=== PATIENT | female | born 1970 | race Caucasian/White ===

== ENCOUNTER 2021-01-25 06:11 | Observation (INO) | payer OTHER ==
[2021-01-24 10:43] LABS: Hemoglobin 13.8 gm/dl (10.1-14.3); Mean Corpuscular HGB Conc 35 % (30-34); Mean Corpuscular Volume 90 fl (79-97); Platelet Count 250 K/mm3 (140-440); Red Blood Count 4.45 M/mm3 (3.65-5.03); Red Cell Distribution Width 13.2 % (13.2-15.2)
[2021-01-24 11:41] LABS: Blood Urea Nitrogen 15 mg/dL (7-17); Calcium 9.4 mg/dL (8.4-10.2); Hemolysis Index 17
[2021-01-24 12:02] LABS: BUN/Creatinine Ratio 30
[~2021-01-25 06:11] MED LIST: ACETAMINOPHEN 500 MG TAB PO SCH; CELECOXIB 200 MG CAP PO NR; GABAPENTIN 300 MG CAP PO NR; LACTATED RINGERS 1,000 ML IV SCH; MIDAZOLAM 2 MG/2 ML INJ IV NR; SCOPOLAMINE TRANSDERMAL PATCH 72 HR TD NR
[2021-01-25] MEDS ORDERED: BACTERIOSTATIC SODIUM CHLORIDE 0.9% 30 ML VIAL INFILTRATI ONE (06:28)
[2021-01-25] MEDS ORDERED: ceFAZolin/STERILE WATER 2 GM/20 ML SYRINGE IV NR (07:00)
[2021-01-25] MEDS ORDERED: propofoL 200 MG/20 ML VIAL IV ONE (07:15)
[2021-01-25] MEDS ORDERED: ROCURONIUM 50 MG/5 ML INJ IV ONE (07:15)
[2021-01-25] MEDS ORDERED: ONDANSETRON 4 MG/2 ML INJ ONE (07:15)
[2021-01-25] MEDS ORDERED: LIDOCAINE MPF (2%) 20 MG/1 ML VIAL 5 ML ONE (07:15)
[2021-01-25] MEDS ORDERED: HYDROmorphone 1 MG/1 ML INJ ONE (07:16)
[2021-01-25] MEDS ORDERED: fentaNYL 100 MCG/2 ML INJ ONE ×2 (07:16→10:29)
--- NOTE | 2021-01-25 07:19 | Anesthesia Day of Surgery ---
Anesthesia Day of Surgery - Day of Surgery Patient Examined: Yes Patient H&P Reviewed: Yes Patient is NPO: Yes Beta Blockers: No Cardiac Clearance: No Pulmonary Clearance: No Osvaldo's Test: N/A
[2021-01-25] MEDS ORDERED: LIDOCAINE (1%) 10 MG/1 ML VIAL 20 ML MDV ONE (07:21)
[2021-01-25] MEDS ORDERED: BUPIVACAINE/PF (0.5%) 5 MG/1 ML 30 ML VIAL INFILTRATI ONE (07:21)
--- NOTE | 2021-01-25 07:21 | Anesthesia Consultation ---
Anesthesia Consult and Med Hx Date of service: 01/25/21 - Airway Anesthetic Teeth Evaluation: Good ROM Head & Neck: Adequate Mental/Hyoid Distance: Adequate Mallampati Class: Class III Intubation Access Assessment: Possibly Difficult - Pulmonary Exam CTA: Yes - Cardiac Exam Cardiac Exam: RRR - Pre-Operative Health Status ASA Pre-Surgery Classification: ASA3 Proposed Anesthetic Plan: General Nerve Block: TAP block - Pulmonary Hx Smoking: No Hx Sleep Apnea: No (AURA PRE SCREEN LOW RISK) - Cardiovascular System Hx Hypertension: Yes (X 5 YRS) Hx Heart Attack/AMI: No Hx Angina: No - Central Nervous System Hx Seizures: No Hx Psychiatric Problems: No - Gastrointestinal Hx Gastroesophageal Reflux Disease: No - Endocrine Hx Renal Disease: No Hx Liver Disease: No Hx Insulin Dependent Diabetes: No Hx Non-Insulin Dependent Diabetes: Yes (recently taken off her medication) - Hematic Hx Anemia: No - Other Systems Hx Cancer: No Hx Obesity: Yes
[2021-01-25] MEDS ORDERED: dexAMETHasone 4 MG/ML VIAL ONE (07:29)
[2021-01-25] MEDS ORDERED: cloNIDine/PF 1,000 MCG/10 ML VIAL EP ONE (07:29)
[2021-01-25] MEDS ORDERED: BUPIVACAINE/PF (0.25%) 2.5 MG/ML 30 ML VIAL INFILTRATI ONE (07:29)
[2021-01-25] MEDS ORDERED: ONDANSETRON 4 MG/2 ML INJ IV PRN ×3 (07:33→11:05)
[2021-01-25] MEDS ORDERED: HYDROmorphone 1 MG/1 ML INJ IV PRN (07:33)
[2021-01-25] MEDS ORDERED: WATER FOR IRRIG STERILE 1,500 ML BOTTLE IR ONE (08:32)
[2021-01-25] MEDS ORDERED: SODIUM CHLORIDE 0.9% IRR 1,500 ML BOTTLE IR ONE (09:50)
[2021-01-25] MEDS ORDERED: KETOROLAC 30 MG/1 ML INJ ONE (09:57)
[2021-01-25] MEDS ORDERED: NEOSTIGMINE 10MG/10 ML INJ MDV ONE (09:57)
[2021-01-25] MEDS ORDERED: PHENYLEPHRINE/NS 1,000 MCG/10 ML SYRINGE (OR USE) IV ONE (09:57)
[2021-01-25] MEDS ORDERED: GLYCOPYRROLATE 0.4 MG/2 ML INJ ONE (09:57)
--- NOTE | 2021-01-25 11:02 | Post Operative Note ---
Pre-op diagnosis: incisional hernia Post-op diagnosis: same Findings: 9 x7cm lower midline incisional hernia containing omentum repaired with 13.8cm x 17.[address] composite mesh Procedure: robotic assisted lysis of adhesions, open repair of incisional hernia with mesh Anesthesia: GETA, other (TAP block) Surgeon: SEAMUS GAINES Kiln Operator: MARIO ZUÑIGA Estimated blood loss: minimal Pathology: list (hernia sac) Specimen disposition: to lab Condition: stable Disposition: PACU
[2021-01-25] MEDS ORDERED: oxyCODONE /ACETAMINOPHEN 5-325MG TAB PO PRN (11:04)
--- NOTE | 2021-01-25 11:04 | Event Note ---
Date: 01/25/21 50-year-old female with a history of hysterectomy who presented for elective incisional hernia repair. Patient was found to have a larger than expected hernia defect which was not felt to be amenable to repair in a minimally invasive fashion. Therefore patient underwent open incisional hernia repair with mesh. Due to the more extensive nature of the surgery, she will be admitted for observation, pain control, case management consult to set up home health care. Daughter updated
[2021-01-25] MEDS ORDERED: MORPHINE 2 MG/1 ML INJ IV PRN (11:08)
[2021-01-25] MEDS ORDERED: DOCUSATE SODIUM 100 MG CAP PO PRN (11:30)
[2021-01-25] MEDS ORDERED: ACETAMINOPHEN 325 MG TAB PO PRN (11:30)
[2021-01-25] MEDS ORDERED: IBUPROFEN 600 MG TAB PO SCH (12:00)
[2021-01-25] MEDS: KETOROLAC 30 MG/1 ML INJ IV SCH ×2 (12:03→21:12)
--- NOTE | 2021-01-25 13:32 | Post Anesthesia Evaluation ---
- Post Anesthesia Evaluation Patient Participated: Yes Airway Patent: Yes Stable Respiratory Function: Yes Nausea/Vomiting: No Temp > 96.8F: Yes Pain Manageable: Yes Adequeate Hydration: Yes Anesthesia Complications: No
[2021-01-25] MEDS: GABAPENTIN 300 MG CAP PO SCH (17:12)
[2021-01-25] MEDS: HEPARIN 5,000 UNIT/1 ML VIAL SUB-Q SCH (17:12)
--- NOTE | 2021-01-25 19:01 | Operative Report ---
Operative Report Operative Report: Date: 01/25/21 Pre-op diagnosis: incisional hernia Post-op diagnosis: same Findings: 9 x7cm lower midline incisional hernia containing omentum repaired with 13.8cm x 17.[address] composite mesh Procedure: robotic assisted lysis of adhesions, open repair of incisional hernia with mesh Anesthesia: GETA, other (TAP block) Surgeon: SEAMUS GAINES Warehouse Operations Manager: MARIO ZUÑIGA Estimated blood loss: minimal Pathology: list (hernia sac) Specimen disposition: to lab Condition: stable Disposition: PACU HPI and indication: 50 yo F with hx of open hysterectomy who was seen in the surgery clinic for evaluation of incisional hernia. Patient was having discomfort in the area and it was recommended that the hernia be repaired. On examination, the patient had a reducible hernia of the upper portion of her lower midline incision measuring approximately 3.5cm. All risks, benefits, alternatives to surgery were discussed with the patient and her daughter. All questions answered and consent obtained for robotic assisted incisional hernia repair with mesh, possible open. Procedure in detail: Patient was identified in the preoperative area and taken back to the operating room, placed on the operating room table in supine position. After anesthesia was induced, both arms were tucked and all bony prominences padded appropriately. A jensen catheter was steriley placed by the circulating nurse. The abdomen was prepped and draped in the usual sterile fashion and time out performed. A antonia incision was made in the LUQ at [place] though which a veress needle was inserted. The veress needle positioning was confirmed using saline drop test and the abdomen insufflated to 15mmHg without incident. A 5mm RUQ Optiview trocar was then placed under direct visualization. The area of the hernia was obscured by omental adhesions to the peritoneum. The veress needle was visualized and removed. There was no underlying injury to the abdominal structures during inspection of the abdomen. Next, an additional subxyphoid 12mm balloon trocar and 8 mm LUQ robotic trocar was then placed under direct visualization. The 5mm RUQ trocar was removed and replaced with a 8 mm robotic trocar. A raytec was placed into the abdomen. The robot was then docked. The monopolar scissors were placed in arm 1 and the fenestrated bipolar grasper in arm 2. The surgeon was transferred to the mo nsole. The adhesions from the omentum to the lower midline and pelvis were dissected using electrocautery and blunt dissection. Once lysis of adhesions was complete, the entire hernia defect was visible. It measured 9 cm x 7cm and was larger than measured on physical exam. The fascial edges were too far apart to approximate primarily and it was felt that the repair could not be performed robotically or laparoscopically. Therefore, it was decided to convert to an open incisional hernia repair. The raytec was removed. The robot was undocked and the trocars removed. A lower midline incision was made using a 10 blade through the old surgical scar. Dissection was carried through the subcutaneous tissue to the hernia sac using electrocautery. The hernia sac was grasped between to hemostats and tented upwards. This was incised with bovie electrocautery and then opened in the cephalad and caudad direction. The fascia was cleared of overlying tissue and myocutaneous flaps created circumfrentially in order to define the hernia borders. The hernia sac was excised and passed off the table as a specimen. Once this was completed, the fascia was able to be approximated. It was decided to repair the hernia with a 17.8cm (l) x 13.8 cm (w) Bard ventrio ST composite mesh. This was sutured to the fascia circumfrentially at every 1cm intervals using #1 prolene. The mesh was seen to lay flat with adequate overlap of the defect. The fascia was closed over the mesh using #1 vicryl interrupted stitches. The entirety of the mesh was covered. The subcutaneous tissue was irrigated and hemostasis ensured. Africa powder was sprayed onto the subcutaneous tissue to further ensure hemostasis. As there was a large subcutaneous pocket from the dissection, a 19 F yareli drain was placed into the subcutaneous tissue and brought out near the left side of the incision. This was sutured to the skin using 3-0 nylon drain stitch. The incision was closed in layered fashion. The deep dermal layer was closed with interrupted 3-0 vicryl stitches. The fascia of the 12 mm port was closed with interrupted 0-vicryl stitch. The skin incisions were approximated using 4-0 monocryl subcuticular stitches and skin glue. A drain sponge and tegaderm dressing was applied to the drain and the David bulb assembled in the usual fashion. At the end of the case, all sponge, instrument, and sharp counts were correct x2. The patient was awoken from anesthesia, the jensen removed, and abdominal binder applied. Patient was taken to PACU in stable condition. Family updated.
[2021-01-26] MEDS: HEPARIN 5,000 UNIT/1 ML VIAL SUB-Q SCH ×2 (00:45→05:23)
[2021-01-26] MEDS: GABAPENTIN 300 MG CAP PO SCH ×2 (00:45→05:23)
[2021-01-26] MEDS: KETOROLAC 30 MG/1 ML INJ IV SCH ×2 (05:22→11:12)
--- NOTE | 2021-01-26 08:57 | Discharge Summary ---
Providers - Providers Date of Admission: 01/25/21 11:21 Date of discharge: 01/25/21 Attending physician: SEAMUS GAINES DO 01/25/21 11:06 Consult to Case Management [CONS] Routine Services Needed at Discharge: Home Health Services Notified:: n/a Additional Physician Instructions: pending dc tomorrow 01/26/21 Primary care physician: LOWELL MAY Hospitalization Reason for admission: incisional hernia Condition: Good Procedures: Robotic assisted lysis of adhesions and open incisional hernia repair with mesh Hospital course: Patient admitted for observation and pain control status post open incisional hernia repair. Patient's hospital course was uncomplicated. Pain was well c ontrolled. She was discharged home in stable condition. Disposition: [id number] HOME UNDER [facility] Final Discharge Diagnosis (Prints w/discharge instructions): Incisional hernia Time spent for discharge: 30 minutes - Discharge Diagnoses (1) Incisional hernia Status: Chronic Qualifiers: Obstruction and gangrene presence: without obstruction or gangrene Qualified Code(s): K43.2 - Incisional hernia without obstruction or gangrene; K43.91 - Incisional hernia, without obstruction or gangrene Core Measure Documentation - Palliative Care Palliative Care/ Comfort Measures: Not Applicable - Core Measures Any of the following diagnoses?: none Exam - Physical Exam Narrative exam: Gen; AAOx3. NAD CV: s1, S2+ Resp: even and unlabored Abd: soft, NT, ND> incisions c/d/i. Abd binder in place. TRINITY sero sang Ext: no c/c/e - Constitutional Vitals: Temp Pulse Resp BP Pulse Ox 99.4 F 58 L 18 102/60 97 01/26/21 05:13 01/26/21 05:22 01/26/21 05:22 01/26/21 05:22 01/26/21 05:22 Plan Activity: other (No heavy lifting of more than 15 pounds for the next 6 weeks. No driving if taking prescription pain medications.) Diet: regular Wound: open to air (May shower today. Pat incisions dry, do not scrub or rub. Do not submerge incisions in water.), drain care as instructed (Empty drain every day and record output.) Additional Instructions: Empty drain every day and record output. Wear abdominal binder at all times except for during shower and sleep. Follow up with: LOWELL MAY MD [Primary Care Provider] - 7 Days SEAMUS GAINES DO [Staff Physician] - 14 Days Prescriptions: Gabapentin 300 mg PO BID #6 capsule Ibuprofen [Motrin 800 MG tab] 800 mg PO Q8HR PRN #30 tablet PRN Reason: Pain, Moderate (4-6) oxyCODONE /ACETAMINOPHEN [Percocet 5/325 mg] 1 tab PO Q6H PRN #30 tablet PRN Reason: Pain , Severe (7-10)
[2021-01-26 12:10] VITALS: BP 94/49
== END 2021-01-26 14:12 | disposition home health service (06) ==
LOC: OR 06:11 → 3A 11:21
PROVIDERS: ADMIT Surgery; ATTEND Surgery
DX: K43.2 Incisional hernia without obstruction or gangrene (principal); Z20.822 Contact with and (suspected) exposure to COVID-19; K43.9 Ventral hernia without obstruction or gangrene; Z79.899 Other long term (current) drug therapy
CPT/HCPCS: 36415; 49560; 49568; 80048; 82962; 85027; 88302; 96372; 96374; 96375; 96376; C1781; G0378; J0690; J0735; J1100; J1170; J1644; J1885; J2250; J2370; J2405; J2704; J2710; J3010; J7120; S2900; U0003

== ENCOUNTER 2021-11-04 09:48 | Outpatient (CLI) | payer OTHER ==
--- NOTE | 2021-11-04 10:42 | XRay Report ---
ABDOMEN 1 VIEW(S) INDICATION / CLINICAL INFORMATION: R10.9 UNSPECIFIED ABDOMINAL PAIN. COMPARISON: None available. FINDINGS: TUBES / LINES: None. BOWEL GAS PATTERN/EXTRALUMINAL GAS: No significant abnormality. No pneumatosis or secondary signs of free air. ADDITIONAL FINDINGS: No significant additional findings. IMPRESSION: 1. No acute findings. Signer Name: Ashok Gutiérrez MD Signed: 11/04/2021 10:37 AM Workstation Name: [id number]
--- NOTE | 2021-11-04 13:57 | Ultrasound Report ---
ULTRASOUND ABDOMEN, COMPLETE INDICATION / CLINICAL INFORMATION: R10.9 UNSPECIFIED ABDOMINAL PAIN. COMPARISON: None available. FINDINGS: PANCREAS: No significant abnormality. ABDOMINAL AORTA: No significant abnormality. IVC: No significant abnormality. LIVER: The liver is normal in size measuring 16.5 cm with diffusely echogenic appearance. Normal hepa topedal blood flow within the main portal vein. GALLBLADDER: No significant abnormality. BILE DUCTS: No significant abnormality. Common bile duct measures 2 mm. KIDNEYS: Right: The right kidney measures 9.7 cm. No significant abnormality. Left: The left kidney measures 10.5 cm. Rounded hyperechoic lesion measuring 1.1 cm. SPLEEN: The spleen measures 9.7 cm. No significant abnormality. FREE FLUID: None. ADDITIONAL FINDINGS: Small fat-containing hernia within the midline abdomen. Abdominal wall defect me asures 1.3 cm. IMPRESSION: 1. Small fat-containing hernia within the midline abdomen, as above. 2. Diffusely echogenic appearance of the liver, most commonly seen with steatosis. 3. 1.1 cm rounded hyperechoic left renal lesion, most likely represents benign angiomyolipoma. Africae r, multiphase CT renal protocol is recommended to further characterize. Scribed by: Shila Cheung RDMS, ROCK, RAHEEM Scribed: 11/04/2021 12:51 PM I have reviewed the images, agree with this report, and edited this report as needed. Signer Name: Darell Mora MD Signed: 11/04/2021 1:52 PM Workstation Name: [email or web address]
== END 2021-11-04 09:49 | disposition home or self-care (01) ==
LOC: US 09:48
PROVIDERS: ATTEND Surgery
DX: K46.9 Unspecified abdominal hernia without obstruction or gangrene (principal); N28.9 Disorder of kidney and ureter, unspecified; K76.0 Fatty (change of) liver, not elsewhere classified
CPT/HCPCS: 74018; 76700

== ENCOUNTER 2021-11-30 10:14 | Outpatient (CLI) | payer OTHER ==
[2021-11-30 12:05] LABS: Blood Urea Nitrogen 12 mg/dL (7-17)
--- NOTE | 2021-11-30 14:01 | Cat Scan Report ---
CT ABDOMEN AND PELVIS WITH CONTRAST HISTORY: R10.9 UNSPECIFIED ABDOMINAL PAIN CONCERN FOR A NEW HERNIA. OMNI 300 100 ML COMPARISON: None. TECHNIQUE: Axial CT images were obtained through the abdomen and pelvis after 100 cc of Omnipaque 300 IV contrast. Sagittal and coronal reformatted images. All CT scans at this location are performed us ing CT dose reduction for ALARA by means of automated exposure control. FINDINGS: CT ABDOMEN: Lung Bases: Clear. Liver: Moderate hepatic steatosis Biliary: No significant abnormality. Spleen: No significant abnormality. Unenlarged. Pancreas: No significant abnormality. Adrenals: A 1.6 cm intermediate density left adrenal nodule is identified. Normal right adrenal gland . Kidneys: No significant abnormality. Lymphatics: No lymphadenopathy. Vasculature: No significant abnormality. Bowel/Peritoneum: No significant abnormality. No free air. No free fluid. Normal appendix. CT PELVIS: : The bladder is unremarkable. Hysterectomy has been performed. The ovaries are unremarkable. Osseous Structures: 1 cm anterolisthesis of L5 with respect to the sacrum is demonstrated. Chronic bi lateral L5 pars defects are noted. Additional Findings: There is a small ventral wall defect residential between the xiphoid and the umbilic us near midline. The neck of the hernia measures approximately 1 cm. The hernia sac contains a small amount of fat. No additional hernia. IMPRESSION: Small ventral wall hernia containing fat as described. Hepatic steatosis. 1.6 cm left adrenal nodule which is indeterminate based on density. This probably represents a small adrenal adenoma. If further evaluation is needed CT or MRI adrenal protocol could be obtained. Hysterectomy. Grade 1/2 anterolisthesis of L5 with respect to the superior sacrum. Bilateral chronic appearing L5 p ars defects. Signer Name: Deuce Burrows Jr, MD Signed: 11/30/2021 1:56 PM Workstation Name: [id number]
== END 2021-11-30 10:15 | disposition home or self-care (01) ==
LOC: CT 10:14
PROVIDERS: ATTEND Surgery
DX: K76.0 Fatty (change of) liver, not elsewhere classified (principal); M43.16 Spondylolisthesis, lumbar region; E27.9 Disorder of adrenal gland, unspecified; K43.9 Ventral hernia without obstruction or gangrene; Z90.710 Acquired absence of both cervix and uterus
CPT/HCPCS: 36415; 74177; 82565; 84520; Q9967

== ENCOUNTER 2021-12-26 10:32 | Outpatient (CLI) | payer OTHER ==
--- NOTE | 2021-12-28 09:56 | Mammography Report ---
DIGITAL SCREENING MAMMOGRAM WITH CAD, 12/26/2021 CLINICAL INFORMATION / INDICATION: Routine screening mammography. TECHNIQUE: Digital bilateral 2D mammography was obtained in the craniocaudal and mediolateral obliqu e projections. This examination was interpreted with the benefit of Computer-Aided Detection analysis . COMPARISON: 11/05/2020 FINDINGS: Breast Density: The breasts are heterogeneously dense, which may obscure small masses. No dominant mass, suspicious calcifications, or architectural distortion in either breast. There has been no significant interval change. IMPRESSION: No mammographic evidence of malignancy. Follow up recommendation: Routine yearly screening mammogram. BI-RADS Category 1: NEGATIVE A "normal" or negative report should not discourage follow up or biopsy of a clinically significant f inding. A written summary of these findings will be mailed to the patient. The patient will be entered into a mammography reporting system which will generate a reminder letter for the patient's next appointmen t at the appropriate interval. [employer] recommends yearly mammograms starting at age 40 and continuing as l thu as a woman is in good health. Breast MRI is recommended for women with an approximate 20-25% or greater lifetime risk of breast cancer, including women with a strong family history of breast or ova valeria cancer or who have been treated for Hodgkin's disease. Signer Name: Roosevelt Walker MD Signed: 12/28/2021 9:51 AM Workstation Name: [email or web address]
== END 2021-12-26 10:33 | disposition home or self-care (01) ==
LOC: MAMMO 10:32
PROVIDERS: ATTEND Internal Medicine
DX: Z12.31 Encounter for screening mammogram for malignant neoplasm of breast (principal)
CPT/HCPCS: 77067